=== PATIENT | male | born 1955 | race Asian ===

== ENCOUNTER 2016-09-01 19:24 | Emergency (ER) | payer OTHER ==
[~2016-09-01] VITALS: Ht 182.9 cm; Wt 64.4 kg
[2016-09-01] MEDS ORDERED: NAPROSYN250 MG OR (20:25)
== END 2016-09-01 20:32 | disposition home or self-care (01) ==
LOC: ED 19:24
DX: M19.041 Primary osteoarthritis, right hand (principal)
CPT/HCPCS: 99282